=== PATIENT | male | born 1945 | race Caucasian/White ===

== ENCOUNTER 2024-07-26 10:42 | Day surgery (SDC) | payer OTHER ==
[2024-07-26] VITALS (9 sets, daily range): BP systolic 126–173; BP diastolic 65–91; PULSE 43–62; RESP 10–12; TEMP 98; O2SAT 12–98
[~2024-07-26] VITALS: Ht 185.4 cm; Wt 95.2 kg
[2024-07-26] MEDS ORDERED: LORazepam 0.5 MG tablet PO PRN (11:10)
[2024-07-26] MEDS ORDERED: normal saline 1,000 ML IV SCH (11:10)
[2024-07-26] MEDS ORDERED: diphenhydrAMINE 25mg capsule PO PRN (11:10)
[2024-07-26 12:19] LABS: BASOPHILS % (AUTO) 0.9 % (0-1); EOSINOPHILS # (AUTO) 0.1 X10'3 (0-0.9); EOSINOPHILS % (AUTO) 1.4 % (0-6); HEMATOCRIT 45.7 % (42.0-52.0); HEMOGLOBIN 15.2 g/dl (14.0-17.9); LYMPHOCYTES # (AUTO) 1.8 X10'3 (1.1-4.8); LYMPHOCYTES % (AUTO) 35.1 % (21-51); MEAN CORPUSCULAR HEMOGLOBIN 31.5 PG (27.0-31.0); MEAN CORPUSCULAR HGB CONC 33.2 g/dL (33.0-36.5); MEAN CORPUSCULAR VOLUME 94.8 FL (78-98); MEAN PLATELET VOLUME 9.4 FL (7.4-10.4); MONOCYTES # (AUTO) 0.3 X10'3 (0-0.9); MONOCYTES % (AUTO) 5.9 % (2-12); NEUTROPHILS # (AUTO) 2.9 X10'3 (1.8-7.7); NEUTROPHILS % (AUTO) 56.7 % (42-75); PLATELET COUNT 150 X10'3 (140-440); RED BLOOD COUNT 4.82 X10'6 (4.70-6.10); RED CELL DISTRIBUTION WIDTH 14.5 % (11.5-14.5); WHITE BLOOD COUNT 5.2 X10'3 (4.5-11.0)
[2024-07-26 12:27] LABS: ANION GAP 10 (8-16); BLOOD UREA NITROGEN 19 MG/DL (7-18); BUN/CREATININE RATIO 16.7 (10.0-20.0); CALCIUM 9.7 MG/DL (8.5-10.1); CHLORIDE 107 MMOL/L (99-107); CREATININE 1.14 MG/DL (0.60-1.10); GLUCOSE 100 MG/DL (70-104); SODIUM 143 MMOL/L (135-145); TOTAL CARBON DIOXIDE 26.4 MMOL/L (24-32); eCRCL 60 ML/MIN; eGFR 62 ML/MIN
[2024-07-26 12:30] LABS: POTASSIUM 4.2 MMOL/L (3.5-5.1)
[2024-07-26] MEDS: normal saline 1,000 ML IV SCH (12:34)
[2024-07-26] MEDS: diphenhydrAMINE 25mg capsule PO PRN (12:34)
[2024-07-26] MEDS: LORazepam 0.5 MG tablet PO PRN (12:34)
[2024-07-26 12:46] LABS: APTT 24 SECONDS (22-32); PROTHROMBIN TIME 10.8 SECONDS (9.0-12.0)
[2024-07-26] MEDS ORDERED: LOSA100T58 PO (12:57)
[2024-07-26] MEDS ORDERED: TERB250T89 PO (12:57)
[2024-07-26] MEDS ORDERED: APIX5TAB3 PO (12:57)
[2024-07-26] MEDS ORDERED: LOPE2TAB23 PO (12:57)
[2024-07-26] MEDS ORDERED: ADAL40PE5 SUBCUT (12:57)
[2024-07-26] MEDS ORDERED: MAGN400C PO (12:57)
[2024-07-26] MEDS ORDERED: GLUC-222 PO (12:57)
[2024-07-26] MEDS ORDERED: PREG150C47 PO (12:57)
[2024-07-26] MEDS ORDERED: AMLO-315 PO (12:57)
[2024-07-26] MEDS ORDERED: POTA99CA PO (12:57)
[2024-07-26] MEDS ORDERED: [UNRECOGNIZED DRUG - SUPPLY] PO (12:57)
[2024-07-26] MEDS ORDERED: LOP12.5T PO (12:57)
[2024-07-26] MEDS ORDERED: nitroGLYCERIN 500mcg/5mL D5W 5 ML IV ONE (14:15)
[2024-07-26 14:37] LABS: ISTAT HGB ART 13.9 g/dl (14.0-17.9); ISTAT Hct ART 41 %PCV (42-52); ISTAT O2 SATURATION ARTERIAL 85 % (95-98); ISTAT SOURCE ART
[2024-07-26] MEDS ORDERED: iohexol 350 MG/ML 50ML vial IV ONE ×2 (14:40→14:47)
== END 2024-07-26 17:15 | disposition home or self-care (01) ==
LOC: SSTAY O 10:42
PROVIDERS: ATTEND Internal Medicine Interventional Cardiology
DX: I35.0 Nonrheumatic aortic (valve) stenosis (principal); I25.10 Atherosclerotic heart disease of native coronary artery without angina pectoris; I10 Essential (primary) hypertension; I48.91 Unspecified atrial fibrillation; E78.5 Hyperlipidemia, unspecified; Z85.528 Personal history of other malignant neoplasm of kidney; Z79.01 Long term (current) use of anticoagulants; Z79.899 Other long term (current) drug therapy; Z82.49 Family history of ischemic heart disease and other diseases of the circulatory system
CPT/HCPCS: 36415; 80048; 82803; 85014; 85025; 85610; 85730; 93005; 93456; 93567; 99152; 99153; A6258; J3490; J7030; Q0163; Q9967; A6402; C1751; C1769; C1894

== ENCOUNTER 2024-09-21 11:15 | Outpatient (CLI) | payer OTHER ==
[~2024-09-21 11:15] MED LIST: ADAL40PE5 SUBCUT; AMLO-315 PO; APIX5TAB3 PO; GLUC-222 PO; LOP12.5T PO; LOPE2TAB23 PO; LOSA100T58 PO; MAGN400C PO; POTA99CA PO; PREG150C47 PO; TERB250T89 PO; [UNRECOGNIZED DRUG - SUPPLY] PO
[2024-09-21] MEDS ORDERED: IODIXANOL 320 MG/ML INFUS..BTL 100ML IV ONE (11:54)
[2024-09-21 12:06] LABS: EOSINOPHILS # (AUTO) 0.1 X10'3 (0-0.9); MONOCYTES # (AUTO) 0.4 X10'3 (0-0.9)
[2024-09-21 12:08] LABS: BASOPHILS # (AUTO) 0.1 X10'3 (0-0.2); EOSINOPHILS % (AUTO) 2.1 % (0-6); HEMATOCRIT 40.6 % (42.0-52.0); HEMOGLOBIN 13.8 g/dl (14.0-17.9); LYMPHOCYTES # (AUTO) 1.9 X10'3 (1.1-4.8); LYMPHOCYTES % (AUTO) 36.4 % (21-51); MEAN CORPUSCULAR HEMOGLOBIN 31.4 PG (27.0-31.0); MEAN CORPUSCULAR HGB CONC 33.8 g/dL (33.0-36.5); MEAN CORPUSCULAR VOLUME 92.7 FL (78-98); MEAN PLATELET VOLUME 9.4 FL (7.4-10.4); MONOCYTES % (AUTO) 6.9 % (2-12); NEUTROPHILS # (AUTO) 2.8 X10'3 (1.8-7.7); NEUTROPHILS % (AUTO) 53.6 % (42-75); PLATELET COUNT 155 X10'3 (140-440); RED BLOOD COUNT 4.38 X10'6 (4.70-6.10); RED CELL DISTRIBUTION WIDTH 13.8 % (11.5-14.5); WHITE BLOOD COUNT 5.2 X10'3 (4.5-11.0)
[2024-09-21 12:28] LABS: ALANINE AMINOTRANSFERASE 21 U/L (12-78); ALBUMIN 3.5 G/DL (3.4-5.0); ALBUMIN/GLOBULIN RATIO 1.1 (1.1-1.5); ALKALINE PHOSPHATASE 42 IU/L (46-116); ANION GAP 9 (8-16); ASPARTATE AMINO TRANSFERASE 18 U/L (10-37); BILIRUBIN,TOTAL 1.2 MG/DL (0.1-1.0); BLOOD UREA NITROGEN 18 MG/DL (7-18); BUN/CREATININE RATIO 14.4 (10.0-20.0); CALCIUM 8.7 MG/DL (8.5-10.1); CHLORIDE 110 MMOL/L (99-107); CREATININE 1.25 MG/DL (0.60-1.10); GLUCOSE 95 MG/DL (70-104); POTASSIUM 4.2 MMOL/L (3.5-5.1); PRO BRAIN NATRIURETIC PEPTIDE 2209 PG/ML (0-450); SODIUM 145 MMOL/L (135-145); TOTAL CARBON DIOXIDE 25.9 MMOL/L (24-32); TOTAL PROTEIN 6.6 G/DL (6.4-8.2); eGFR 56 ML/MIN
[2024-09-21 13:20] LABS: APTT 27 SECONDS (22-32); PROTHROMBIN TIME 10.9 SECONDS (9.0-12.0)
== END 2024-09-21 23:59 | disposition home or self-care (01) ==
LOC: RAD 11:15
PROVIDERS: ATTEND Internal Medicine Cardiovascular Disease
DX: I70.0 Atherosclerosis of aorta (principal); I35.0 Nonrheumatic aortic (valve) stenosis; R06.02 Shortness of breath; I65.29 Occlusion and stenosis of unspecified carotid artery; R59.0 Localized enlarged lymph nodes; E27.8 Other specified disorders of adrenal gland; R91.1 Solitary pulmonary nodule; D18.09 Hemangioma of other sites; M47.816 Spondylosis without myelopathy or radiculopathy, lumbar region; J92.9 Pleural plaque without asbestos
CPT/HCPCS: 36415; 71046; 71275; 74174; 75572; 80053; 83880; 85025; 85610; 85730; Q9967

== ENCOUNTER 2024-10-13 12:00 | Outpatient (CLI) | payer OTHER ==
[~2024-10-13] VITALS: Ht 185.4 cm; Wt 95.7 kg
[~2024-10-13 12:00] MED LIST changes: +heparin 1,000 UNITS/NS 500ml (2 units/mL) BAG ONE
[2024-10-13 14:49] VITALS: BP 159/78; PULSE 61; RESP 16; TEMP 96.6; O2SAT 99
[2024-11-23] MEDS ORDERED: GLUC1CAP36 PO (14:49)
[2024-11-23] MEDS ORDERED: Potassium PO (14:49)
[2024-11-23] MEDS ORDERED: OMEP20CA16 PO (14:49)
[2024-11-24] MEDS ORDERED: LIDOcaine 1% 30ml preserv. free vial ONE (11:18)
[2024-11-24] MEDS ORDERED: iohexol 350MG/ML 100ml bottle IV ONE (11:19)
[2024-11-24] MEDS ORDERED: protamine sulfate 10mg/ml inj. ONE (11:55)
== END 2024-10-13 23:59 | disposition home or self-care (01) ==
LOC: TAVR 12:00
PROVIDERS: ATTEND Internal Medicine Cardiovascular Disease
DX: I35.0 Nonrheumatic aortic (valve) stenosis (principal); R06.02 Shortness of breath; I65.29 Occlusion and stenosis of unspecified carotid artery
CPT/HCPCS: J1644; J2003; J2720; Q9967

== ENCOUNTER 2024-11-27 10:11 | Inpatient (IN) | payer OTHER, MEDICARE ==
[~2024-11-27] VITALS: Ht 185.4 cm; Wt 93.8 kg
[~2024-11-27 10:11] MED LIST changes: -GLUC-222 PO; +GLUC1CAP36 PO; -LOP12.5T PO; +OMEP20CA16 PO; -POTA99CA PO; +Potassium PO; -TERB250T89 PO; -heparin 1,000 UNITS/NS 500ml (2 units/mL) BAG ONE
[2024-11-27 10:50] LABS: BASOPHILS % (AUTO) 0.3 % (0-1); EOSINOPHILS % (AUTO) 0.6 % (0-6); HEMATOCRIT 41.3 % (42.0-52.0); HEMOGLOBIN 14.1 g/dl (14.0-17.9); LYMPHOCYTES # (AUTO) 1.5 X10'3 (1.1-4.8); LYMPHOCYTES % (AUTO) 21.2 % (21-51); MEAN CORPUSCULAR HEMOGLOBIN 31.9 PG (27.0-31.0); MEAN CORPUSCULAR HGB CONC 34.1 g/dL (33.0-36.5); MEAN CORPUSCULAR VOLUME 93.6 FL (78-98); MEAN PLATELET VOLUME 9.5 FL (7.4-10.4); MONOCYTES # (AUTO) 0.5 X10'3 (0-0.9); MONOCYTES % (AUTO) 6.6 % (2-12); NEUTROPHILS % (AUTO) 71.3 % (42-75); PLATELET COUNT 98 X10'3 (140-440); RED BLOOD COUNT 4.41 X10'6 (4.70-6.10); RED CELL DISTRIBUTION WIDTH 14.2 % (11.5-14.5)
[2024-11-27 11:12] LABS: ALANINE AMINOTRANSFERASE 17 U/L (12-78); ALBUMIN 3.3 G/DL (3.4-5.0); ALBUMIN/GLOBULIN RATIO 0.9 (1.1-1.5); ALKALINE PHOSPHATASE 57 IU/L (46-116); ANION GAP 7 (8-16); ASPARTATE AMINO TRANSFERASE 21 U/L (10-37); BILIRUBIN,TOTAL 1.6 MG/DL (0.1-1.0); BLOOD UREA NITROGEN 17 MG/DL (7-18); CALCIUM 8.8 MG/DL (8.5-10.1); CHLORIDE 108 MMOL/L (99-107); CREATININE 1.21 MG/DL (0.60-1.10); GLUCOSE 152 MG/DL (70-104); POTASSIUM 4.6 MMOL/L (3.5-5.1); PRO BRAIN NATRIURETIC PEPTIDE 1274 PG/ML (0-450); SODIUM 140 MMOL/L (135-145); TOTAL CARBON DIOXIDE 24.7 MMOL/L (24-32); TOTAL PROTEIN 6.8 G/DL (6.4-8.2); eCRCL 57 ML/MIN; eGFR 58 ML/MIN
[2024-11-27] MEDS ORDERED: mag hydrox/Alum hydrox/simeth 30ml oral suspension PO PRN (12:10)
[2024-11-27] MEDS ORDERED: magnesium hydroxide 30ml (MOM) UD suspension PO PRN (12:10)
[2024-11-27] MEDS ORDERED: potassium Cl 20 mEq SR tablet PO PRN (12:10)
[2024-11-27] MEDS ORDERED: magnesium Cl slow-release 64mg tablet PO PRN (12:10)
[2024-11-27] MEDS ORDERED: magnesium sulf-water 2g/50mL 50 ML IV PRN (12:10)
[2024-11-27] MEDS ORDERED: potassium Cl 40MEQ/1/2NS 520ml 520 ML IV PRN (12:10)
[2024-11-27] MEDS ORDERED: magnesium sulf-water 4G/100mL 100 ML IV PRN (12:10)
[2024-11-27 12:46] LABS: BILIRUBIN,URINE NEGATIVE (Neg); CLARITY,URINE CLEAR (Clear); COLOR,URINE YELLOW (Yellow); GLUCOSE, URINE NEGATIVE (Neg); KETONES,URINE NEGATIVE (Neg); LEUKOCYTE ESTERASE ,URINE NEGATIVE (Neg); NITRITES, URINE NEGATIVE (Neg); OCCULT BLOOD,URINE NEGATIVE (Neg); PROTEIN,URINE NEGATIVE (Neg); UROBILINOGEN,URINE 0.2 E.U/dL (0.2-1.0)
[2024-11-27 12:53] LABS: UA COLLECTION TYPE URINAL
[2024-11-27 13:18] LABS: APTT 27 SECONDS (22-32); PROTHROMBIN TIME 10.9 SECONDS (9.0-12.0)
[2024-11-27] MEDS ORDERED: atropine 0.1mg/ml 10ml syringe ONE ×2 (13:30→15:17)
[2024-11-27 13:50] LABS: MAGNESIUM 2.1 MG/DL (1.5-2.4); PHOSPHORUS 2.2 MG/DL (2.3-4.5)
[2024-11-27] MEDS ORDERED: atropine 1 MG/1 ML vial IV PRN (14:00)
[2024-11-27] MEDS: fentaNYL/PF 50MCG/1 ML 2ML syringe IV ONE (14:01)
[2024-11-27] MEDS: fentaNYL/PF 50MCG/1 ML 2ML syringe ONE (14:02)
[2024-11-27 14:04] LABS: HEMOGLOBIN A1C 5.1 % (4.5-6.2)
[2024-11-27] MEDS: morphine 4 MG/ML inj SYRINge IV ONE (14:13)
[2024-11-27] MEDS ORDERED: midazolam 1 mg/ML 2ml injection ONE ×2 (14:45→15:51)
[2024-11-27] MEDS ORDERED: ceFAZolin 1000mg inj ONE ×2 (14:45→14:46)
[2024-11-27] MEDS ORDERED: fentaNYL/PF 50MCG/1 ML 2ML syringe ONE (14:45)
[2024-11-27] MEDS ORDERED: LIDOcaine 1% W/epiNEPHrine 1:100,000 20ml vial ONE (14:45)
[2024-11-27 16:45] VITALS: BP 135/68; PULSE 72; RESP 14; TEMP 97.5
[2024-11-27] MEDS ORDERED: LORazepam 1 MG tablet PO PRN (17:05)
[2024-11-27] MEDS ORDERED: LOSA-415 PO (17:42)
[2024-11-27 18:00] VITALS: BP 164/87; PULSE 75; RESP 11; TEMP 97.4; O2SAT 97
[2024-11-27 20:00] VITALS: RESP 15; O2SAT 96
[2024-11-27] MEDS: docusate sod 100mg capsule PO SCH (20:00)
[2024-11-27] MEDS: K and/or MAG REPLACEMENT MC SCH (20:00)
[2024-11-27] MEDS: apixaban 5mg tablet PO SCH (20:32)
[2024-11-27 22:00] VITALS: BP 143/68; PULSE 75; RESP 18; TEMP 97.3; O2SAT 93
[2024-11-27] MEDS: ceFAZolin/D5W- 1GM premix 50 ML IV SCH (23:39)
[2024-11-27] MEDS: acetaminophen 325mg tablet PO PRN (23:45)
[2024-11-28] VITALS (10 sets, daily range): BP systolic 129–171; BP diastolic 73–99; PULSE 64–82; RESP 14–30; TEMP 97.3–97.9; O2SAT 96–100
[2024-11-28] MEDS ORDERED: LOSA-418 PO (05:38)
[2024-11-28] MEDS ORDERED: ADALIMUMAB SUBCUT SCH (05:45)
[2024-11-28] MEDS: amLODIPine 5mg tablet PO ONE (05:50)
[2024-11-28] MEDS: amLODIPine 5mg tablet PO SCH (05:52)
[2024-11-28 06:20] LABS: BASOPHILS % (AUTO) 0.5 % (0-1); EOSINOPHILS # (AUTO) 0.1 X10'3 (0-0.9); EOSINOPHILS % (AUTO) 0.8 % (0-6); HEMATOCRIT 40.8 % (42.0-52.0); LYMPHOCYTES # (AUTO) 1.5 X10'3 (1.1-4.8); LYMPHOCYTES % (AUTO) 22.7 % (21-51); MEAN CORPUSCULAR HEMOGLOBIN 31.8 PG (27.0-31.0); MEAN CORPUSCULAR HGB CONC 34.4 g/dL (33.0-36.5); MEAN CORPUSCULAR VOLUME 92.4 FL (78-98); MEAN PLATELET VOLUME 9.1 FL (7.4-10.4); MONOCYTES # (AUTO) 0.6 X10'3 (0-0.9); MONOCYTES % (AUTO) 8.5 % (2-12); NEUTROPHILS # (AUTO) 4.4 X10'3 (1.8-7.7); NEUTROPHILS % (AUTO) 67.5 % (42-75); PLATELET COUNT 100 X10'3 (140-440); RED BLOOD COUNT 4.42 X10'6 (4.70-6.10); RED CELL DISTRIBUTION WIDTH 13.7 % (11.5-14.5); WHITE BLOOD COUNT 6.5 X10'3 (4.5-11.0)
[2024-11-28 07:03] LABS: ALBUMIN 3.1 G/DL (3.4-5.0); ANION GAP 7 (8-16); BLOOD UREA NITROGEN 11 MG/DL (7-18); BUN/CREATININE RATIO 12.1 (10.0-20.0); CALCIUM 8.7 MG/DL (8.5-10.1); CHLORIDE 108 MMOL/L (99-107); CHOLESTEROL 146 MG/DL (0-200); CREATININE 0.91 MG/DL (0.60-1.10); GLUCOSE 130 MG/DL (70-104); HDL CHOLESTEROL 49 MG/DL (35-60); LDL CHOLESTEROL 82 MG/DL (50-100); MAGNESIUM 1.9 MG/DL (1.5-2.4); POTASSIUM 3.6 MMOL/L (3.5-5.1); SODIUM 141 MMOL/L (135-145); TOTAL CARBON DIOXIDE 25.6 MMOL/L (24-32); TRIGLYCERIDES 97 MG/DL (20-135); eCRCL 76 ML/MIN; eGFR 81 ML/MIN
[2024-11-28] MEDS ORDERED: [UNRECOGNIZED DRUG - OTHER] PO SCH (08:00)
[2024-11-28] MEDS: pregabalin 75mg capsule PO SCH (09:22)
[2024-11-28] MEDS: atorvastatin 20mg tablet PO SCH (09:23)
[2024-11-28] MEDS: pantoprazole 40mg Tablet.DR PO SCH (09:23)
[2024-11-28] MEDS: loperamide 2mg capsule PO SCH (09:24)
[2024-11-28] MEDS: magnesium oxide 400mg tablet PO SCH (09:25)
[2024-11-28] MEDS ORDERED: aspirin 81mg, enteric-coated 1 TAB TABLET.DR PO SCH (11:45)
[2024-11-28] MEDS: ondansetron/PF 4mg/2ml inj IV PRN (12:35)
[2024-11-28] MEDS: ondansetron/PF 4mg/2ml inj IV ONE (13:15)
[2024-11-28] MEDS: metoclopramide 5 mg/ml inj IV ONE (15:12)
[2024-11-28] MEDS: normal saline 1000ml 1,000 ML IV SCH (16:50)
[2024-11-28] MEDS: losartan 50mg tablet PO SCH (18:53)
[2024-11-28] MEDS: acetaminophen 325mg tablet PO PRN (18:56)
[2024-11-29] VITALS (8 sets, daily range): BP systolic 131–149; BP diastolic 56–86; PULSE 60–83; RESP 10–16; TEMP 97.4–99.8; O2SAT 94–99
[2024-11-29 06:49] LABS: HEMATOCRIT 42.8 % (42.0-52.0); HEMOGLOBIN 14.6 g/dl (14.0-17.9); MEAN CORPUSCULAR HEMOGLOBIN 31.6 PG (27.0-31.0); MEAN CORPUSCULAR HGB CONC 34.2 g/dL (33.0-36.5); MEAN CORPUSCULAR VOLUME 92.4 FL (78-98); PLATELET COUNT 123 X10'3 (140-440); RED BLOOD COUNT 4.63 X10'6 (4.70-6.10); RED CELL DISTRIBUTION WIDTH 13.5 % (11.5-14.5); WHITE BLOOD COUNT 8.7 X10'3 (4.5-11.0)
[2024-11-29 06:50] LABS: BASOPHILS % (AUTO) 0 % (0-1); EOSINOPHILS % (AUTO) 0 % (0-6); LYMPHOCYTES # (AUTO) 0.9 X10'3 (1.1-4.8); LYMPHOCYTES % (AUTO) 10.1 % (21-51); MEAN PLATELET VOLUME 9.3 FL (7.4-10.4); MONOCYTES # (AUTO) 0.5 X10'3 (0-0.9); MONOCYTES % (AUTO) 5.8 % (2-12); NEUTROPHILS # (AUTO) 7.3 X10'3 (1.8-7.7); NEUTROPHILS % (AUTO) 84.1 % (42-75)
[2024-11-29 07:52] LABS: ALBUMIN 3.3 G/DL (3.4-5.0); ANION GAP 13 (8-16); BLOOD UREA NITROGEN 14 MG/DL (7-18); BUN/CREATININE RATIO 17.5 (10.0-20.0); CALCIUM 9.1 MG/DL (8.5-10.1); CHLORIDE 103 MMOL/L (99-107); GLUCOSE 124 MG/DL (70-104); MAGNESIUM 2.1 MG/DL (1.5-2.4); POTASSIUM 3.5 MMOL/L (3.5-5.1); SODIUM 138 MMOL/L (135-145); TOTAL CARBON DIOXIDE 22.3 MMOL/L (24-32); eCRCL 86 ML/MIN; eGFR > 90 ML/MIN
[2024-11-29] MEDS ORDERED: iohexol 350MG/ML 100ml bottle IV ONE (13:15)
[2024-11-29] MEDS: meclizine 12.5mg tablet PO SCH (13:23)
[2024-11-30] VITALS (8 sets, daily range): BP systolic 115–151; BP diastolic 63–94; PULSE 66–77; RESP 13–17; TEMP 97.3–98.4; O2SAT 97–99
[2024-11-30 06:52] LABS: BASOPHILS % (AUTO) 0.1 % (0-1); EOSINOPHILS % (AUTO) 0 % (0-6); HEMATOCRIT 43.2 % (42.0-52.0); HEMOGLOBIN 15.1 g/dl (14.0-17.9); LYMPHOCYTES # (AUTO) 1.2 X10'3 (1.1-4.8); LYMPHOCYTES % (AUTO) 13.3 % (21-51); MEAN CORPUSCULAR HEMOGLOBIN 32.1 PG (27.0-31.0); MEAN CORPUSCULAR HGB CONC 34.9 g/dL (33.0-36.5); MEAN CORPUSCULAR VOLUME 91.9 FL (78-98); MEAN PLATELET VOLUME 8.8 FL (7.4-10.4); MONOCYTES # (AUTO) 0.5 X10'3 (0-0.9); MONOCYTES % (AUTO) 5.8 % (2-12); NEUTROPHILS # (AUTO) 7.6 X10'3 (1.8-7.7); NEUTROPHILS % (AUTO) 80.8 % (42-75); PLATELET COUNT 135 X10'3 (140-440); RED CELL DISTRIBUTION WIDTH 13.6 % (11.5-14.5); WHITE BLOOD COUNT 9.4 X10'3 (4.5-11.0)
[2024-11-30 07:41] LABS: ALBUMIN 3.3 G/DL (3.4-5.0); ANION GAP 12 (8-16); BLOOD UREA NITROGEN 16 MG/DL (7-18); BUN/CREATININE RATIO 17.4 (10.0-20.0); CALCIUM 9.1 MG/DL (8.5-10.1); CHLORIDE 102 MMOL/L (99-107); CREATININE 0.92 MG/DL (0.60-1.10); GLUCOSE 114 MG/DL (70-104); POTASSIUM 3.1 MMOL/L (3.5-5.1); SODIUM 137 MMOL/L (135-145); TOTAL CARBON DIOXIDE 23.4 MMOL/L (24-32); eCRCL 75 ML/MIN; eGFR 80 ML/MIN
[2024-11-30] MEDS ORDERED: magnesium sulf-water 2g/50mL 50 ML IV PRN (08:30)
[2024-11-30] MEDS ORDERED: magnesium Cl slow-release 64mg tablet PO PRN (08:30)
[2024-11-30] MEDS ORDERED: potassium Cl 40MEQ/1/2NS 520ml 520 ML IV PRN (08:30)
[2024-11-30] MEDS ORDERED: magnesium sulf-water 4G/100mL 100 ML IV PRN (08:30)
[2024-11-30] MEDS ORDERED: potassium Cl 20 mEq SR tablet PO PRN (08:30)
[2024-11-30 08:41] LABS: MAGNESIUM 2.3 MG/DL (1.5-2.4)
[2024-11-30] MEDS: potassium Cl 20 mEq SR tablet PO PRN ×2 (10:00→10:11)
[2024-11-30] MEDS: metoclopramide 5 mg/ml inj IV ONE (12:59)
[2024-11-30] MEDS: acetaminophen 325mg tablet PO PRN (18:01)
[2024-11-30] MEDS: K and/or MAG REPLACEMENT MC SCH (19:09)
[2024-12-01 02:00] VITALS: BP 128/64; PULSE 60; RESP 17; TEMP 97.3; O2SAT 97
[2024-12-01 05:50] LABS: ALBUMIN 2.6 G/DL (3.4-5.0); ANION GAP 10 (8-16); BLOOD UREA NITROGEN 15 MG/DL (7-18); BUN/CREATININE RATIO 17.4 (10.0-20.0); CALCIUM 8.4 MG/DL (8.5-10.1); CHLORIDE 104 MMOL/L (99-107); CREATININE 0.86 MG/DL (0.60-1.10); GLUCOSE 99 MG/DL (70-104); MAGNESIUM 2.3 MG/DL (1.5-2.4); POTASSIUM 3.4 MMOL/L (3.5-5.1); SODIUM 138 MMOL/L (135-145); TOTAL CARBON DIOXIDE 24.3 MMOL/L (24-32); eCRCL 80 ML/MIN; eGFR 86 ML/MIN
[2024-12-01 06:00] VITALS: BP 161/98; PULSE 66; RESP 14; TEMP 97.6; O2SAT 97
[2024-12-01 06:00] LABS: BASOPHILS % (AUTO) 0.4 % (0-1); EOSINOPHILS % (AUTO) 0.5 % (0-6); HEMATOCRIT 41.6 % (42.0-52.0); HEMOGLOBIN 14.3 g/dl (14.0-17.9); LYMPHOCYTES # (AUTO) 1.9 X10'3 (1.1-4.8); LYMPHOCYTES % (AUTO) 27.4 % (21-51); MEAN CORPUSCULAR HEMOGLOBIN 31.5 PG (27.0-31.0); MEAN CORPUSCULAR HGB CONC 34.4 g/dL (33.0-36.5); MEAN CORPUSCULAR VOLUME 91.6 FL (78-98); MEAN PLATELET VOLUME 8.6 FL (7.4-10.4); MONOCYTES # (AUTO) 0.6 X10'3 (0-0.9); MONOCYTES % (AUTO) 9.1 % (2-12); NEUTROPHILS # (AUTO) 4.4 X10'3 (1.8-7.7); NEUTROPHILS % (AUTO) 62.6 % (42-75); PLATELET COUNT 135 X10'3 (140-440); RED BLOOD COUNT 4.55 X10'6 (4.70-6.10); RED CELL DISTRIBUTION WIDTH 13.2 % (11.5-14.5); WHITE BLOOD COUNT 7.1 X10'3 (4.5-11.0)
[2024-12-01] MEDS ORDERED: ONDA-243 PO (07:21)
[2024-12-01] MEDS ORDERED: MECL-302 PO (07:21)
[2024-12-01] MEDS ORDERED: ATOR20TA66 PO (07:21)
[2024-12-01 08:00] VITALS: RESP 14; O2SAT 97
[2024-12-01 09:29] VITALS: BP_SYST 161; PULSE 68
[2024-12-01] MEDS ORDERED: POTA-207 PO (15:37)
== END 2024-12-01 15:41 | disposition home health service (06) | DRG 242 ==
LOC: ER 10:11 → ED HOLD 11:42 → PCU 3S 16:40
PROVIDERS: ADMIT Internal Medicine; ATTEND Internal Medicine
PROC: 0JH606Z Insertion of Pacemaker, Dual Chamber into Chest Subcutaneous Tissue and Fascia, Open Approach (ICD-10-PCS; principal; 2024-11-27)
PROC: 02H63JZ Insertion of Pacemaker Lead into Right Atrium, Percutaneous Approach (ICD-10-PCS; 2024-11-27)
PROC: 02HK3JZ Insertion of Pacemaker Lead into Right Ventricle, Percutaneous Approach (ICD-10-PCS; 2024-11-27)
DX: I44.39 Other atrioventricular block (principal); N17.0 Acute kidney failure with tubular necrosis; I44.7 Left bundle-branch block, unspecified; N18.30 Chronic kidney disease, stage 3 unspecified; I12.9 Hypertensive chronic kidney disease with stage 1 through stage 4 chronic kidney disease, or unspecified chronic kidney disease; I25.10 Atherosclerotic heart disease of native coronary artery without angina pectoris; E87.6 Hypokalemia; I48.91 Unspecified atrial fibrillation; Z95.2 Presence of prosthetic heart valve; Z79.01 Long term (current) use of anticoagulants; Z79.899 Other long term (current) drug therapy; Z87.891 Personal history of nicotine dependence; Z90.49 Acquired absence of other specified parts of digestive tract; Z88.8 Allergy status to other drugs, medicaments and biological substances
CPT/HCPCS: 33208; 36415; 70450; 70496; 70498; 71045; 80048; 80053; 80061; 81003; 82948; 83036; 83735; 83880; 84100; 84145; 84484; 85025; 85610; 85730; 87081; 87502; 87503; 93005; 97110; 97161; 97530; 99152; 99153; 99291; A4565; A4615; A6258; C1751; C1785; C1894; C1898; G0378; J0461; J0690; J2250; J2270; J2405; J2765; J3010; J3490; J7030; J8597; Q9967